=== PATIENT | female | born 1965 | race Caucasian/White ===

== ENCOUNTER → 2021-10-25 | Outpatient (CLI) | payer OTHER ==
--- NOTE | 2021-10-25 12:58 | XR ---
EXAMINATION TYPE: XR Hip Complete LT DATE OF EXAM: 10/25/2021 CLINICAL HISTORY: Chronic increasing hip pain. TECHNIQUE: AP and frogleg views of the left hip are obtained. COMPARISON: None. FINDINGS: There is no acute fracture/dislocation evident in the left hip. [id number] axial elise nt space loss. No significant spurring or subchondral cystic change. The overlying soft tissue appea rs unremarkable. IMPRESSION: As above.
--- NOTE | 2021-10-25 13:00 | XR ---
EXAMINATION TYPE: XR lumbosacral spine min 4V DATE OF EXAM: 10/25/2021 CLINICAL HISTORY: Chronic low back pain TECHNIQUE: Frontal, lateral, and oblique images of the lumbar spine are obtained. COMPARISON: None FINDINGS: There are 5 lumbar type vertebral bodies identified. Right-sided Posterior interpedicular rods and screws L5-S1 level with artificial disc material. Straightening of lumbar spine with grade 1 anterolisthesis L4 on L5. Mild disc space narrowing and anterior spurring at this level. Vertebral b syd heights and disc space heights satisfactory above this level. Mild anterior spurring at L3-L4 lev el. Oblique images appear within normal limits. Overlying soft tissue is unremarkable. IMPRESSION: As above.
== END | disposition home or self-care (01) ==
LOC: RADXRYALE 10:40
PROVIDERS: ATTEND Physician Assistant
DX: M25.552 Pain in left hip (principal)
CPT/HCPCS: 72110; 73502